=== PATIENT | female | born 1960 | race Caucasian/White ===

== ENCOUNTER 2017-04-12 05:42 | Inpatient (IN) | payer OTHER ==
--- NOTE | 2017-04-11 17:24 | GHP ---
[f rep st] PREOP HISTORY AND PHYSICAL DATE OF ADMISSION: 04/12/2017 PROBLEM: Left hip arthritis. HISTORY OF PRESENT ILLNESS: The patient is a 56-year-old woman admitted for a left total hip arthro plasty. I did her right total hip arthroplasty in March of 2015, and she has had a very good result. She has had progressive pain in her left hip. She is now having daily pain and some night pain. Her activities are very limited. She will undergo a left total hip arthroplasty. PAST MEDICAL HISTORY: She is treated for hypothyroidism and migraine headaches. She recently had a sore throat. Her throat culture was negative for strep. She was treated recently with penicillin but I have asked her to discontinue it. No history of heart disease, stents, DVT, hepatitis, or sle ep apnea. CURRENT MEDICATIONS: Fluticasone nasal spray p.r.n., levothyroxine 0.112 mcg per day, topiramate 25 mg a day at bedtime for migraine headaches. She also uses sumatriptan 25 mg p.r.n. for migraine he adaches. DRUG ALLERGIES: Sulfa 20 years ago caused nausea and diarrhea. Metal allergies: None. Latex elis rgy: None. SOCIAL HISTORY: The patient is . She lives in [place]. She is retired. She does not smok e cigarettes and occasionally drinks alcohol. PHYSICAL EXAMINATION: VITAL SIGNS: Height 5 feet 4 inches. Weight 148 pounds. BMI 25.4. EYES: Conjunctivae and sclerae are clear. Pupils are round and reactive. MOUTH: Good oral hygiene. No loose teeth. CHEST: Clear. HEART: Regular rhythm, no murmurs. EXTREMITIES: Pertinent findings limited to her left hip. She has full hip extension and 100 degrees of flexion. External rotation 30 degrees. Internal rotation 5 degrees. Abduction 30 degrees. IMAGING: Films from December of 2015 show degenerative arthritis of the left hip. Her right total hip looks excellent. She is about 2 mm short on the left side. IMPRESSION ON ADMISSION: 1. Left hip degenerative arthritis. She is prepared for a left total hip arthroplasty. 2. Two years status post right total hip arthroplasty with an excellent result. 3. Treatment for hypothyroidism and migraine headaches. PLAN: She will undergo a left total hip arthroplasty. The surgery has been described to her, ryan alvarado the risks, complications, expectations, and recovery time. I have talked to her about the risk of dislocation, leg length inequality, infection, and sciatic nerve injury. She understands that s he is relatively young for a total hip replacement and potentially could require revision surgery in the future. I have also advised her that with bilateral procedures, there can be mild [id number] differences in the recovery and even in the final result. All her questions have been answered, an d she consents to surgery. /[id number]/MODL
[2017-04-12] MEDS ORDERED: ROPIVACAINE 0.2% 80 MG, EPINEPHrine 0.2 MG, KETOROLAC TROMETHAMINE 30 MG in BAG 0 ML IU ONE (06:04)
[2017-04-12] MEDS ORDERED: ACETAMINOPHEN 325 MG TAB PO ONE (06:04)
[2017-04-12] MEDS ORDERED: DEXAMETHASONE 4 MG/ML VIAL IVP ONE (06:04)
[2017-04-12] MEDS ORDERED: FAMOTIDINE 20 MG TAB PO ONE (06:04)
[2017-04-12] MEDS ORDERED: POVIDONE-IODINE 20 ML in SODIUM CL IRRIG SOLUTION 500 ML IRR ONE (06:04)
[2017-04-12] MEDS ORDERED: TRANEXAMIC ACID 1,360 MG in NS 100 ML IV ONE (06:04)
[2017-04-12] MEDS ORDERED: LIDOCAINE 1% 2 ML INJ ONE (06:28)
[2017-04-12] MEDS ORDERED: ceFAZolin 1 GM/5 ML SYR ONE (06:42)
[2017-04-12] MEDS ORDERED: MIDAZOLAM 2 MG/2 ML VIAL ONE (06:57)
--- NOTE | 2017-04-12 06:57 | PDHPUP ---
History & Physical Update H&P update statement: This history and physical update is based on an assessment of the patient which was completed after admission or registration (within 24 hours), but prior to the surgery/procedure. H&P update: H&P reviewed & patient examined, no change in patient's condition since H&P completed
[2017-04-12] MEDS ORDERED: MIDAZOLAM 2 MG/2 ML VIAL IVP ONE (06:59)
--- NOTE | 2017-04-12 07:00 | PDANEPAE ---
ANE History of Present Illness osteoarthritis of left hip ANE Past Medical History - Cardiovascular History Hx Hypertension: No Hx Arrhythmias: No Hx Chest Pain: No Hx Coronary Artery / Peripheral Vascular Disease: No Hx CHF / Valvular Disease: No Hx Palpitations: No - Pulmonary History Hx COPD: No Hx Asthma/Reactive Airway Disease: No Hx Recent Upper Respiratory Infection: No Hx Oxygen in Use at Home: No Hx Sleep Apnea: No Sleep Apnea Screening Result - Last Documented: Negative Pulmonary History Comment: EXERCISE INDUCED ASTHMA - Neurologic History Hx Cerebrovascular Accident: No Hx Seizures: No Hx Dementia: No Neurologic History Comment: migraines Q 6 weeks- takes Topimax - Endocrine History Hx Diabetes: No Endocrine History Comment: HYPOTHYROID - Renal History Hx Renal Disorders: No - Liver History Hx Hepatic Disorders: No - Neurological & Psychiatric Hx Hx Neurological and Psychiatric Disorders: Yes Neurological / Psychiatric History Comment: MIGRAINES MONTHLY - Cancer History Hx Cancer: No - Congenital Disorder History Hx Congenital Disorders: No - GI History Hx Gastrointestinal Disorders: No Gastrointestinal History Comment: INTERMITTENT REFLUX - Other Health History Other Health History: OA L hip - Chronic Pain History Chronic Pain: Yes (left HIP) - Surgical History Prior Surgeries: R total hip 2015. LAP DEMETRA. LT KNEE SCOPE. WISDOM TEETH ANE Review of Systems - Exercise capacity METS (RN): 4 METS ANE Patient History - Allergies Allergies/Adverse Reactions: Sulfa (Sulfonamide Antibiotics) Allergy (Verified 03/29/17 13:06) Diarrhea - Home Medications Home Medications: Levothyroxine [Synthroid 112 mcg (*)] 112 mcg PO DAILY06 02/20/15 [Last Taken 06:30] Zolpidem Tartrate 5 mg PO HS PRN 02/20/15 [Last Taken 03/17/15 21:30 2.5 mg] Acetamn/Diphenhydramine 500/25 [Tylenol PM (*)] 1 each PO HS PRN 03/22/17 [Last Taken Unknown] Ibuprofen [Motrin (*)] 200 mg PO DAILY PRN 03/22/17 [Last Taken Unknown] Topiramate [Topamax 25MG (*)] 25 mg PO HS 03/22/17 [Last Taken Unknown] ZOLMitriptan [Zomig 2.5MG (*)] 5 mg PO DAILY PRN 03/22/17 [Last Taken Unknown] - NPO status NPO Since - Liquids (Date): 04/11/17 NPO Since - Liquids (Time): 22:30 NPO Since - Solids (Date): 04/11/17 NPO Since - Solids (Time): 21:00 - Smoking Hx Smoking Status: Former smoker ANE Labs/Vital Signs - Vital Signs Blood Pressure: 97/69 Heart Rate: 66 Respiratory Rate: 16 O2 Sat (%): 96 Height: 162.56 cm Weight: 68.039 kg ANE Physical Exam - Airway Neck exam: FROM Mallampati Score: Class 1 Mouth exam: normal dental/mouth exam - Pulmonary Pulmonary: no respiratory distress - Cardiovascular Cardiovascular: regular rate and rhythym - ASA Status ASA Status: II ANE Anesthesia Plan Anesthesia Plan: MAC, spinal
[2017-04-12] MEDS ORDERED: DEXAMETHASONE 4 MG/ML VIAL ONE (07:05)
[2017-04-12] MEDS ORDERED: fentaNYL 100 MCG/2 ML INJ ONE (07:05)
[2017-04-12] MEDS ORDERED: ONDANSETRON 4 MG/2 ML VIAL ONE (07:05)
[2017-04-12] MEDS ORDERED: PROPOFOL/EMULSION 500 MG/50 ML BOTTLE IV ONE (07:06)
[2017-04-12] MEDS: ceFAZolin 2 GM/DEXTROSE 100 ML IV ONE ×2 (07:21→08:14)
[2017-04-12] MEDS ORDERED: ONDANSETRON 4 MG/2 ML VIAL IVP PRN ×2 (07:42→08:46)
[2017-04-12] MEDS ORDERED: HYDROmorphONE/DILAUDID 1 MG/ML SYR IVP PRN (07:42)
[2017-04-12] MEDS ORDERED: fentaNYL 100 MCG/2 ML INJ IVP PRN (07:42)
[2017-04-12] MEDS ORDERED: PROMETHAZINE HCL 25 MG/ML INJ IVP PRN ×2 (07:42→08:46)
[2017-04-12] MEDS ORDERED: NALOXONE HCL 0.4 MG/ML INJ IVP PRN (07:42)
[2017-04-12] MEDS ORDERED: PHENYLEPHRINE HCL 100 MCG/ML SYR ONE (08:13)
--- NOTE | 2017-04-12 08:43 | POSTOPPROG ---
Post Op Note Date of Operation: 04/12/17 Surgeon: Steve Gotti [employer] Manager: Nate Clark/Aaron De La Vega Anesthesiologist: Reid Espino Anesthesia: IV Sedation, Spinal Post-op Diagnosis: Left hip arthritis Procedure: Left total hip arthroplasty Inf/Abcess present in the surg proc area at time of surgery?: No EBL: 100-500
[2017-04-12] MEDS ORDERED: KETOROLAC 30 MG/1 ML SDV IVP PRN (08:46)
[2017-04-12] MEDS ORDERED: LACTULOSE 20 GM/30 ML UDCUP PO PRN (08:46)
[2017-04-12] MEDS ORDERED: METOCLOPRAMIDE 10 MG/2 ML VIAL IVP PRN (08:46)
[2017-04-12] MEDS ORDERED: ZOLPIDEM TARTRATE 5 MG TAB PO PRN (08:46)
[2017-04-12] MEDS ORDERED: diphenhydrAMINE 25 MG CAP PO PRN (08:46)
[2017-04-12] MEDS ORDERED: traMADol 50 MG TAB PO PRN (08:46)
[2017-04-12] MEDS ORDERED: PHARMACY PAIN CONSULT 1 EA MISC PRN (08:46)
[2017-04-12] MEDS ORDERED: ONDANSETRON DISINTEGRATING 4 MG TAB PO PRN (08:46)
[2017-04-12] MEDS ORDERED: BISACODYL 10 MG SUPP PR PRN (08:46)
[2017-04-12] MEDS ORDERED: DIPHENOXYLATE/ATROPINE LOMOTIL 1 TAB PO PRN (08:46)
[2017-04-12] MEDS ORDERED: MAGNESIUM HYDROXIDE 30 ML UDCUP PO PRN (08:46)
[2017-04-12] MEDS ORDERED: NS 500 ML IV PRN (08:46)
[2017-04-12] MEDS ORDERED: POLYETHYLENE GLYCOL 3350 17 GM PKT PO PRN (08:46)
[2017-04-12] MEDS ORDERED: PROMETHAZINE HCL 25 MG SUPPR PR PRN (08:46)
[2017-04-12] MEDS ORDERED: LR 1,000 ML IV SCH (09:00)
--- NOTE | 2017-04-12 11:20 | GOP ---
[f rep st] OPERATIVE REPORT DATE OF OPERATION: 04/12/2017 SURGEON: Steve Gotti MD MENTALLY IMPAIRED TEACHER: Nate Clark and Aaron De La Vega. ANESTHESIA: Is a combination of Marcaine, spinal, and IV sedation. ANESTHESIOLOGIST: Dr. Reid Espino. PREOPERATIVE DIAGNOSIS: Left hip degenerative arthritis. POSTOPERATIVE DIAGNOSIS: Left hip degenerative arthritis. PROCEDURE PERFORMED: Left total hip arthroplasty, ceramic femoral head on highly cross-linked polye thylene cup liner. FINDINGS: ESTIMATED BLOOD LOSS: About 300 mL. COUNTS: The sponge and needle count were correct on 2 occasions. I used a [place] Tritanium hemispherical press-fit solid-backed acetabular shell with an outside josy meter of 50 mm. The liner was a Sanjay X3 10 degree lipped highly cross-linked liner with an insid e diameter of 32 mm. The femoral component was a standard offset [place] Secur-Fit Max stem in a si ze 8 and press-fit. The femoral head was a Sanjay Biolox Delta ceramic head with a -2.5 mm neck le ngth and a 32 mm outside diameter. Nate Clark and Aaron De La Vega acted as surgical assistants. Their assistance was a medical neces sity for safe completion of the procedure. DESCRIPTION OF PROCEDURE: The patient was given 2 g of IV Ancef preoperatively within 60 minutes of surgery. She was also given IV tranexamic acid at a dose of 20 mg/kg. She was placed on the opera ting room table and given spinal anesthesia with Marcaine by Dr. Espino. She was then placed supine and given IV sedation. A Cisneros catheter was not used. She wore a LORETTA stocking and SCD on the nono perative leg. She was rolled to the right lateral decubitus position. The position was secured wit h the pegboard table attachment. An axillary roll was used and all pressure points were carefully p added. I was careful to lock her pelvis in a rigid vertical position. Her perineum was isolated wi plastic adhesive drapes. Her left hip and left lower extremity were prepped with ChloraPrep. Th ey were draped free using sterile sheets, stockinette, and Ioban plastic drapes. The [facility] O rganization time-out was performed to verify the correct surgical side and site and the correct zachery ent identity. The [place] time-out was also performed. I made a 4-5 inch straight oblique posterolateral hip skin incision. Subcutaneous tissues were roverto ply divided and hemostasis was obtained using electrocautery. The proximal portion of her fascia la ta was identified and split along the axis of its fibers. I then curved posteriorly and proximally and split the fascia of the gluteus jennie and bluntly split the muscle fibers in line with their o rientation. The [place] self-retaining retractor was inserted. Her sciatic nerve was located, par tially exposed, and protected throughout the procedure. The external rotators and the posterior hip capsule were divided as separate layers at the base of the femoral neck, tagged, and reflected post eriorly. A smooth 1/8-inch Steinmann pin was inserted vertically into the ilium superior to the flavio tabulum. A 1/8-inch drill bit was inserted vertically into the greater trochanter and parallel to t he first pin. The distance between the 2 was measured for leg length reference. Her femoral head w as dislocated posteriorly. Her femoral neck was osteotomized at the appropriate level and inclinati on. I was careful to preserve all the posterior capsule and most of the anterior capsule. The remn ant of her damaged labrum was excised. The femur was prepared first. This allowed me to master technician the amount of natural femoral neck anteversi on. This, in turn, allowed me to later determine the correct amount of cup anteversion. She had ap proximately 10 degrees of natural femoral neck anteversion. The canal was opened laterally with a b ox chisel. I reamed and broached sequentially up to size 8. The size 8 broach was used as a trial stem. I was careful to lateralize adequately. Appropriate retractors were inserted to expose the a cetabulum. The acetabulum was reamed sequentially to 49 mm. I selected a 50 mm [place] Tritanium s olid-backed hemispherical shell. This was tapped securely into place in the proper degree of inclin ation and anteversion. It was a tight fit and I did not think supplemental screw fixation was neces dandy. I used the transverse acetabular ligament and other acetabular bony landmarks to help me prop erly orient the cup. I inserted a screw-in metal dome hole plug. I performed a series of trial reductions to determine length and stability. I concluded that the si ze 8 stem with a -2.5 mm neck length and a 32 mm head with a 10 degree lip trial liner gave me the p roger combination of appropriate length and good anterior and posterior stability. The 10 degree li p [place] X3 highly cross-linked liner was inserted and tapped securely into place. I dialed the 10 degree overhang so that it was directly posterior. I chose the [place] Secur-Fit Max stem in a siz e 8 with standard offset. This was inserted press-fit and was very tight. I did one final trial reduction and confirmed that the -2.5 mm neck length was the proper length. I selected the [place] Biolox Delta ceramic head with an outside diameter of 32 mm and a neck length of -2.5 mm. The head was tapped securely onto the clean trunnion. The acetabulum was irrigated and cleaned, and the hip was reduced one final time. She had excellent anterior and posterior stabilit y and appropriate length. She was a couple of millimeters short preoperatively, and I was intention ally lengthening her a small amount. 40 mL of a joint anesthetic cocktail were injected into the capsule, the deep musculature, and the s ubcutaneous tissues along the skin edges. The joint was thoroughly irrigated one final time with a dilute Betadine solution. Her sciatic nerve was reinspected and looked unharmed. The external rota tors and the posterior capsule were repaired in separate layers with #[address] ill holes in the greater trochanter. This provided a strong posterior capsular and external rotator repair. Her fascia noah was repaired first with a single [id number] #2 FiberWire suture follo wed by a running #2 barbed Ethicon Stratafix PDO suture. The subcutaneous tissues were closed with a running 0 barbed Ethicon Stratafix Monoderm suture. The skin was closed with a running 3-0 barbed Ethicon Stratafix Monoderm subcuticular suture. The skin edges were reapproximated and sealed with Dermabond glue. The wound was covered with a strip of Telfa and everything was held in place with a piece of clear plastic Tegaderm. A long-leg LORETTA stocking and SCD were applied to the operative le g. She wore a stocking and SCD on the opposite leg during the procedure. An abduction pillow was p laced between her knees. She was awakened from anesthesia and rolled to the supine [facility] She was taken to the PACU in satisfactory condition. COMPLICATIONS: There were no recognized intraoperative complications. /[id number]/MODL
[2017-04-12] MEDS: ACETAMINOPHEN 325 MG TAB PO SCH ×3 (12:18→22:35)
[2017-04-12] MEDS: SENNOSIDES/DOCUSATE SODIUM TAB PO SCH ×2 (12:20→22:34)
[2017-04-12] MEDS: FERROUS SULFATE 140 MG TAB.ER PO SCH (12:20)
--- NOTE | 2017-04-12 12:52 | POSTANESTH ---
Post Anesthetic Evaluation Cardiovascular Status: Normal, Stable Respiratory Status: Normal, Stable Level of Consciousness/Mental Status: Can Participate in Eval Pain Control: Adequate, Prn Tx Ordered Nausea/Vomiting Control: Adequate, Prn Tx Ordered Complications Possibly Related to Anesthesia: None Noted
[2017-04-12] MEDS: CYCLOBENZAPRINE 10 MG TAB PO PRN ×2 (12:59→22:51)
[2017-04-12] MEDS: ceFAZolin 2 GM/DEXTROSE 100 ML IV SCH ×2 (14:29→22:52)
[2017-04-12] MEDS: oxyCODONE IR 5 MG TAB PO PRN ×2 (17:11→22:37)
[2017-04-12 20:01] VITALS: RESP 16
[2017-04-12] MEDS ORDERED: TOPIRAMATE 25 MG TAB PO SCH (21:00)
[2017-04-12] MEDS: FAMOTIDINE 20 MG TAB PO SCH (22:36)
[2017-04-12] MEDS: ASPIRIN 325 MG TAB PO SCH (22:38)
[2017-04-13 05:28] LABS: HEMOGLOBIN 11.6 g/dL (12.6-16.3)
[2017-04-13] MEDS ORDERED: LEVOTHYROXINE 112 MCG TAB PO SCH (06:00)
[2017-04-13] MEDS: ACETAMINOPHEN 325 MG TAB PO SCH ×2 (06:44→11:03)
[2017-04-13] MEDS: FAMOTIDINE 20 MG TAB PO SCH (08:28)
[2017-04-13] MEDS: oxyCODONE IR 5 MG TAB PO PRN ×2 (08:28→12:06)
[2017-04-13] MEDS: SENNOSIDES/DOCUSATE SODIUM TAB PO SCH (08:28)
[2017-04-13] MEDS: FERROUS SULFATE 140 MG TAB.ER PO SCH (08:28)
[2017-04-13] MEDS: ASPIRIN 325 MG TAB PO SCH (08:28)
--- NOTE | 2017-04-13 10:58 | SOAPPROG ---
SOAP Progress Note Assessment/Plan: Assessment: Awake and alert. Afebrile. Mild pain. She has been up and walking in the [place]. Her dressing is dry. Sciatic nerve intact. Postop x-rays look excellent. Plan: Up with physical therapy today. Discharged later today. 04/13/17 10:57 Objective: Vital Signs Temp Pulse Resp BP Pulse Ox 37.3 C 58 L 16 98/66 L 93 04/13/17 07:49 04/13/17 07:49 04/13/17 07:49 04/13/17 07:49 04/13/17 07:49 Laboratory Results 04/13/17 05:07 04/12/17 04/13/17 04/14/17 05:59 05:59 05:59 Intake Total 3020 Output Total 750 Balance 2270 ICD10 Worksheet Patient Problems: Problems Problem Status Onset Osteoarthritis of left hip Acute Primary osteoarthritis of right hip Acute
[2017-04-13] MEDS: CYCLOBENZAPRINE 10 MG TAB PO PRN (11:03)
[2017-04-13 12:02] VITALS: BP 88/61; PULSE 56; TEMP 98.6; O2SAT 97
--- NOTE | 2017-04-13 12:45 | GDS ---
[f rep st] DISCHARGE SUMMARY DISCHARGE DIAGNOSIS: Left hip degenerative arthritis. OPERATIONS PERFORMED: 04/12/2017: A left total hip arthroplasty, ceramic femoral head on highly cross-linked polyethylene cup liner. POSTOPERATIVE COMPLICATIONS: None. CONDITION ON DISCHARGE: Improved. DESCRIPTION OF HOSPITAL COURSE: The patient was admitted to the hospital the morning of surgery. Her admission CBC was normal. The same day, under a combination of Marcaine spinal and IV sedation, she underwent a left total hip arthroplasty. Postoperatively, she was treated with multimodal DVT prophylaxis , including aspirin and early mobilization. On the first postoperative day, her hemoglobin and hematocrit were 11.6 and 34.0. She was seen by Physical Therapy and made excellent progress with ambulation and stairs. By the time of discharge, she was afebrile and her wound was clean and dry. DISPOSITION: The patient lives in [place]. [facility] FOLLOWUP: I will see her back in the office tomorrow, and then after her office appointment, she is going to drive back to [place]. DISCHARGE INSTRUCTIONS: 1. She has prescriptions for oxycodone and tramadol for pain control. 2. Continue aspirin 325 mg p.o. daily for 21 days. 3. Use LORETTA stockings for 1 week. 4. Use an abduction pillow in bed for 3 weeks. 5. She may progress to full weightbearing on the left as tolerated. 6. She is to call the office for any questions. /[id number]/MODL MTDD
== END 2017-04-13 12:14 | disposition home or self-care (01) | DRG 470 ==
LOC: F3N 05:42
PROVIDERS: ADMIT Orthopaedic Surgery; ATTEND Orthopaedic Surgery
PROC: 0SRB04Z Replacement of Left Hip Joint with Ceramic on Polyethylene Synthetic Substitute, Open Approach (ICD-10-PCS; principal; 2017-04-12 07:15)
DX: M16.12 Unilateral primary osteoarthritis, left hip (principal); E03.9 Hypothyroidism, unspecified; G43.909 Migraine, unspecified, not intractable, without status migrainosus
CPT/HCPCS: 97116-GP; 97161-GP; 97165-GO; 97530-GP; J0171; J0690; J1100; J1885; J2250; J2370; J2405; J2704; J2795; J3010